=== PATIENT | male | born 1970 | race African-American/Black ===

== ENCOUNTER 2017-11-06 01:46 | Emergency (ER) | payer OTHER ==
[~2017-11-06] VITALS: Ht 177.8 cm; Wt 90.7 kg
[2017-11-06 02:08] VITALS: BP 138/82
--- NOTE | 2017-11-06 02:44 | ED EYE COMPLAINT ---
History of Present Illness General Chief Complaint: Eye Problems Stated Complaint: PT C/O RT EYE PAIN S/P STICK IN THE EYE" Source: patient Exam Limitations: no limitations Vital Signs & Intake/Output Vital Signs & Intake/Output Vital Signs Date Time Temp Pulse Resp B/P B/P Pulse O2 O2 Flow FiO2 Mean Ox Delivery Rate 11/06 0208 98.0 75 20 138/82 98 Room Air Reconcile Medications Polytrim (Polytrim Eye Drops) 10,000 UNIT-1 MG/ML DROPS 2 GTT OPH Q6 corneal abrasion x 7 days Triage Note: PT HERE WITH C/O RIGHT EYE PAIN S/P BEING STRUCK IN EYE BY BRANCHES TODAY AT 11AM. PT REPORTS HE WENT TO BED AND THE PAIN WOKE HIM UP. Triage Nurses Notes Reviewed? yes Onset: Gradual Duration: hour(s): Timing: recent history Severity: mild Right Eye Associated Symptoms: burning, pain HPI: 47 yo gentleman presents with right eye discomfort. 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 "A piece of wood flew into my eye... at the time it didn't hurt... Everything was fine... but then I woke up just now and my eye was really burning and tearing... I close my eye and it feels like sandpaper." He notes clear discharge. He notes no vision change, fever, headache. He is otherwise well. Past History Travel History Traveled to [place] past 21 day No Medical History Any Pertinent Medical History? 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 No Review of Systems Review of Systems Constitutional: Reports: no symptoms. Eyes: Reports: no symptoms. Ear: Reports: no symptoms. Nose: Reports: no symptoms. Mouth: Reports: no symptoms. Throat: Reports: no symptoms. Respiratory: Reports: no symptoms. Cardiovascular: Reports: no symptoms. GI: Reports: no symptoms. Genitourinary: Reports: no symptoms. Musculoskeletal: Reports: no symptoms. Skin: Reports: no symptoms. Neurological/Psychological: Reports: no symptoms. Hematologic/Endocrine: Reports: no symptoms. Immunologic/Allergic: Reports: no symptoms. All Other Systems: Reviewed and Negative Physical Exam General Appearance: well developed/nourished, mild distress General Inspection: normal inspection Eyelid: normal inspection Conjunctiva/Sclera: normal inspection Cornea: normal inspection EOM: intact Pupil: normal accommodation, normal pupil, PERRL General Inspection: normal inspection Eyelid: normal inspection, everted for exam Conjunctiva/Sclera: injected Cornea: examined w/fluorescein, fluorescein dye uptake, no foreign body.... 2x3mm uptake at 6 o'clock on cornea. EOM: intact Pupil: normal accommodation, normal pupil, PERRL Anterior Chamber: normal inspection Physical Exam Head: atraumatic, normal appearance Nose: normal inspection Mouth/Throat: normal mouth inspection, pharynx normal Neck: normal inspection, supple, full range of motion Cardiovascular/Respiratory: no respiratory distress Neurologic/Psych: no motor/sensory deficits, awake, alert, oriented x 3 Skin: intact, normal color, warm/dry Progress Differential Diagnosis: corneal foreign body, conjunctivitis Plan of Care: see below. Departure Departure Disposition: HOME OR SELF CARE Condition: Stable Clinical Impression Primary Impression: Corneal abrasion, right Referrals: Patient Has No Primary Care Dr (PCP/Family) Departure Forms: Customer Survey General Discharge Information Prescriptions: Current Visit Scripts Polytrim (Polytrim Eye Drops) 2 GTT OPH Q6 #20 ML x 7 days Comments tetracaine applied ... resulting in resolution of right eye discomfort... + fluoroscein uptake as noted in exam... prescribed polytrim and referred pt to opth in the am.
[2017-11-06] MEDS ORDERED: POLYTRIM EYE DR10 ML OPH (02:45)
== END 2017-11-06 02:55 ==
LOC: ERH 01:46
DX: S05.01XA Injury of conjunctiva and corneal abrasion without foreign body, right eye, initial encounter (principal); X58.XXXA Exposure to other specified factors, initial encounter; Y92.9 Unspecified place or not applicable; Y93.9 Activity, unspecified